=== PATIENT | female | born 1995 | race African-American/Black ===

== ENCOUNTER 2016-12-15 11:26 | Emergency (ER) | payer BC ==
[~2016-12-15] VITALS: Ht 160 cm; Wt 85.0 kg
[~2016-12-15 11:26] MED LIST: CIPR250T52 PO
[2016-12-15 11:28] VITALS: BP 123/79; PULSE 84; RESP 16; TEMP 98.1; O2SAT 95
--- NOTE | 2016-12-15 12:01 | PD ---
HPI Chief Complaint: Complaint Time Seen by Provider: 12:01 Travel History International Travel<30 days: No Contact w/Intl Traveler<30days: No Traveled to known affect area: No History of Present Illness HPI 21-year-old female presents to emergency department for evaluation urinary frequency, urgency, burning. Patient states that she keeps getting UTIs and is concerned that this is due to her not being circumcised. Denies any recent illnesses, fever, chills. Does have some suprapubic pain but no nausea or vomiting. She does report a white vaginal discharge. She does not believe she is . She has no report. [facility] Past Medical History Medical History: Denies Significant Hx Diminished Hearing: No Immunizations Current: Yes ?: Not LMP: 11/28/16 Social History Alcohol Use: No Tobacco Use: No Substance Use: No Allergies-Medications (Allergen,Severity, Reaction): Coded Allergies: No Known Allergies (Unverified , 09/19/16) Reported Meds & Prescriptions Reported Meds & Active Scripts Active Diflucan (Fluconazole) 150 Mg Tab 150 Mg PO ONCE Keflex (Cephalexin) 500 Mg Cap 500 Mg PO Q8H Cipro (Ciprofloxacin HCl) 250 Mg Tab 250 Mg PO BID 3 Days Review of Systems Except as stated in HPI: all other systems reviewed are Neg Physical Exam Narrative GENERAL: Well-nourished female patient, in no acute distress SKIN: Warm and dry. HEAD: Atraumatic. Normocephalic. EYES: Pupils equal and round. No scleral icterus. No injection or drainage. ENT: No nasal bleeding or discharge. Mucous membranes pink and moist. NECK: Trachea midline. No JVD. CARDIOVASCULAR: Regular rate and rhythm. No murmur appreciated. RESPIRATORY: No accessory muscle use. Clear to auscultation. Breath sounds equal bilaterally. GASTROINTESTINAL: Abdomen soft, nondistended. Suprapubic tenderness to palpation. Hepatic and splenic margins not palpable. MUSCULOSKELETAL: No obvious deformities. No clubbing. No cyanosis. No edema. NEUROLOGICAL: Awake and alert. No obvious cranial nerve deficits. Motor grossly within normal limits. Normal speech. PSYCHIATRIC: Appropriate mood and affect; insight and judgment normal. Data Data Last Documented VS Vital Signs Date Time Temp Pulse Resp B/P Pulse Ox O2 Delivery O2 Flow Rate FiO2 12/15/16 11:28 98.1 84 16 123/79 95 Room Air Orders Urinalysis - C+S If Indicated (12/15/16 11:33) Ed Urine Pregnancytest Poc (12/15/16 11:44) Gc And Chlamydia Pcr (12/15/16 12:07) Urine Culture (12/15/16 11:40) Ceftriaxone Inj (Rocephin Inj) (12/15/16 14:00) Azithromycin (Zithromax) (12/15/16 14:00) Lidocaine 1% Inj (Xylocaine 1% Inj) (12/15/16 14:00) Labs Laboratory Tests Test 12/15/16 11:40 Urine Color YELLOW Urine Turbidity HAZY Urine pH 7.5 Urine Specific [place] 1.017 Urine Protein NEG mg/dL Urine Glucose (UA) NEG mg/dL Urine Ketones NEG mg/dL Urine Occult Blood SMALL Urine Nitrite NEG Urine Bilirubin NEG Urine Urobilinogen LESS THAN 2.0 MG/DL Urine Leukocyte Esterase MOD Urine RBC 34 /hpf Urine WBC 55 /hpf Urine Squamous Epithelial 6 /hpf Cells Urine Bacteria MOD /hpf Urine Mucus FEW /lpf Microscopic Urinalysis Comment CULTURE INDICATED MDM Medical Decision Making Medical Screen Exam Complete: Yes Emergency Medical Condition: Yes Medical Record Reviewed: Yes Differential Diagnosis Cystitis versus vaginitis versus urethritis versus pyelonephritis versus STD versus Narrative Course 21-year-old female presents to emergency department for evaluation of urinary symptoms consistent with previous UTI. Workup was initiated in triage. Abrasion does report thick white vaginal discharge. GC PCR sent. Once a medical bed becomes available, patient will be transferred and care assumed by that provider. Scripts Fluconazole (Diflucan)150 Mg [id number] Mg PO ONCE #1 TAB Ref 1 Prov:Malachi Galindo MD 12/15/16 Cephalexin (Keflex)500 Mg [id number] Mg PO Q8H #21 CAP Prov:Malachi Galindo MD 12/15/16 Condition: Kari ResendizBasia RAMON Dec 15, 2016 12:01
[2016-12-15 12:21] LABS: BACTERIA, URINE MOD /hpf; BLOOD, URINE SMALL (NEG); COMMENT (UR) CULTURE INDICATED; CULTURE IF INDICATED CULTURE INDICATED; GLUCOSE,URINE NEG (NEG); KETONE, URINE NEG (NEG); MUCUS URINE FEW /lpf (OCC); NITRITE,URINE NEG (NEG); PH, URINE 7.5 (5.0-8.5); SQUAMOUS EPITHELIAL CELL URINE 6 /hpf (0-5); URINE COLOR YELLOW (YELLW/STRAW)
--- NOTE | 2016-12-15 13:30 | PD ---
Physical Exam Date Seen by Provider: Dec 15, 2016 Time Seen by Provider: 13:29 Narrative Patient seen originally in triage by Basia NAVARRO. Patient complaining of urinary tract infection symptoms and question STD. Patient complains of white vaginal discharge. Patient has history of recurrent UTI. She denies fever chills or other symptoms. Please see Basia Kee's note. Data Data Last Documented VS Vital Signs Date Time Temp Pulse Resp B/P Pulse Ox O2 Delivery O2 Flow Rate FiO2 12/15/16 11:28 98.1 84 16 123/79 95 Room Air Orders Urinalysis - C+S If Indicated (12/15/16 11:33) Ed Urine Pregnancytest Poc (12/15/16 11:44) Gc And Chlamydia Pcr (12/15/16 12:07) Urine Culture (12/15/16 11:40) Ceftriaxone Inj (Rocephin Inj) (12/15/16 14:00) Azithromycin (Zithromax) (12/15/16 14:00) Labs Laboratory Tests Test 12/15/16 11:40 Urine Color YELLOW Urine Turbidity HAZY Urine pH 7.5 Urine Specific [place] 1.017 Urine Protein NEG mg/dL Urine Glucose (UA) NEG mg/dL Urine Ketones NEG mg/dL Urine Occult Blood SMALL Urine Nitrite NEG Urine Bilirubin NEG Urine Urobilinogen LESS THAN 2.0 MG/DL Urine Leukocyte Esterase MOD Urine RBC 34 /hpf Urine WBC 55 /hpf Urine Squamous Epithelial 6 /hpf Cells Urine Bacteria MOD /hpf Urine Mucus FEW /lpf Microscopic Urinalysis Comment CULTURE INDICATED MDM Medical Record Reviewed: Yes Supervised Visit with LENNIE: Yes Differential Diagnosis UTI. Candidal vaginosis. Possible STD. Narrative Course Patient is treated with Rocephin 1000 mg IM. Patient also given azithromycin 1000 mg by mouth. Patient discharged home with a prescription for Keflex 500 mg 3 times a day 7 days. Patient also given Diflucan 150 mg once. May repeat in one week if necessary for vaginal yeast. Patient is [facility] to ensure clearance of her symptoms at approximate 7-10 days. Patient may return to emergency department if worsening symptoms develop. GC and chlamydia are still pending. Diagnosis Primary Impression: UTI (urinary tract infection) Qualified Code: N30.00 - Acute cystitis without hematuria Additional Impression: Candidiasis, vagina Referrals: [facility] 1 week Patient Instructions: Dysuria (ED), General Instructions, Oral Candidiasis (GEN ) Additional Instruction: Patient is treated with Rocephin 1000 mg IM. Patient also given azithromycin 1000 mg by mouth. Patient discharged home with a prescription for Keflex 500 mg 3 times a day 7 days. Patient also given Diflucan 150 mg once. May repeat in one week if necessary for vaginal yeast. Patient is recommended to follow-up with the [facility] to ensure clearance of her symptoms at approximate 7-10 days. Patient may return to emergency department if worsening symptoms develop. GC and chlamydia are still pending. Med/Other Pt SpecificInfo: Prescription(s) given Scripts Fluconazole (Diflucan)150 Mg [id number] Mg PO ONCE #1 TAB Ref 1 Prov:Malachi Galindo MD 12/15/16 Cephalexin (Keflex)500 Mg [id number] Mg PO Q8H #21 CAP Prov:Malachi Galindo MD 12/15/16 Disposition: 01 DISCHARGE HOME Condition: Stable Tor Burris Dec 15, 2016 13:30
[2016-12-15] MEDS ORDERED: DIFL150T PO (13:50)
[2016-12-15] MEDS ORDERED: CEPH-460 PO (13:50)
[2016-12-15] MEDS ORDERED: LIDOCAINE HCL 1% 30 ML VIAL INFIL ONE (14:00)
[2016-12-15] MEDS ORDERED: AZITHROMYCIN 250 MG TAB PO ONE (14:00)
[2016-12-15 16:24] LABS: CHLAMYDIA PCR NOT DETECTED (NOT DETECT); NEISSERIA PCR NOT DETECTED (NOT DETECT)
== END 2016-12-15 14:39 | disposition home or self-care (01) ==
LOC: NEPB 11:26
DX: N30.00 Acute cystitis without hematuria (principal); B37.3 Candidiasis of vulva and vagina; B95.7 Other staphylococcus as the cause of diseases classified elsewhere; Z87.440 Personal history of urinary (tract) infections
CPT/HCPCS: 81001; 84703; 86403; 87077; 87086; 87186; 87491; 87591; 96372; 99283; J0696

== ENCOUNTER 2018-04-04 05:26 | Emergency (ER) | payer SELFPAY ==
[~2018-04-04] VITALS: Ht 162.6 cm; Wt 72.5 kg
[~2018-04-04 05:26] MED LIST changes: +CEPH-460 PO; +DIFL150T PO
[2018-04-04 05:28] VITALS: BP 90/53; PULSE 79; RESP 16; TEMP 97.5; O2SAT 100
[2018-04-04] MEDS ORDERED: ALUMINUM/MAGNESIUM/SIMETH 30 ML CUP PO ONE (06:00)
[2018-04-04] MEDS ORDERED: LIDOCAINE VISCOUS 2% SOLN 15 ML UDC PO ONE (06:00)
[2018-04-04] MEDS ORDERED: ONDANSETRON ODT 4 MG TAB PO ONE (06:00)
--- NOTE | 2018-04-04 07:14 | PD ---
HPI Chief Complaint: Abdominal Pain Time Seen by Provider: 05:39 Travel History International Travel<30 days: No Contact w/Intl Traveler<30days: No Traveled to known affect area: No History of Present Illness HPI Patient has abdominal pain epigastric that started today she thinks it is gallstones she has a history of gallstones were diagnosed in [place] however she says she has has antibiotics to take when this happens but they are [place] and she is up in [facility] for a week. She is mild nausea but no vomiting no diarrhea no fever pain is epigastric it is burning and she has taken no meds to alleviate the symptoms PFSH Past Medical History Diminished Hearing: No Gastrointestinal Disorders: Yes (Gallstones) Immunizations Current: Yes ?: Not LMP: Begining of february Past Surgical History Surgical History: No Previous Surgery Social History Alcohol Use: No Tobacco Use: No Substance Use: No Allergies-Medications (Allergen,Severity, Reaction): Coded Allergies: No Known Allergies (Unverified , 09/19/16) Reported Meds & Prescriptions Reported Meds & Active Scripts Active No Active Prescriptions or Reported Medications Review of Systems Except as stated in HPI: all other systems reviewed are Neg Gastrointestinal: Positive: Nausea, Abdominal Pain Data Data Last Documented VS Vital Signs Date Time Temp Pulse Resp B/P (MAP) Pulse Ox O2 Delivery O2 Flow Rate FiO2 04/04/18 05:28 97.5 79 16 90/53 (65) 100 Orders Orders Urinalysis - C+S If Indicated (04/04/18 05:46) Ed Urine Pregnancytest Poc (04/04/18 05:46) Al-Mag Hy-Si 40-40-4 Mg/Ml Liq (Mag-Al P (04/04/18 06:00) Lidocaine 2% Viscous (Xylocaine 2% Visco (04/04/18 06:00) Ondansetron Odt (Zofran Odt) (04/04/18 06:00) Labs Laboratory Tests Test 04/04/18 06:10 [facility] Medical Decision Making Medical Screen Exam Complete: Yes Emergency Medical Condition: Yes Diagnosis Primary Impression: Epigastric pain Additional Impression: Gastritis Qualified Codes: K29.70 - Gastritis, unspecified, without bleeding Scripts Famotidine (Pepcid) 20 Mg Tab 20 MG PO BID, #20 TAB 0 Refills Prov: Jaret Uriostegui MD 04/04/18 Ondansetron (Zofran) 4 Mg Tab 4 MG PO Q6HR Y for NAUSEA OR VOMITING, #12 TAB 0 Refills Prov: Jaret Uriostegui MD 04/04/18 Disposition: 01 DISCHARGE HOME Condition: Good Jaret Uriostegui MD Apr 04, 2018 07:14
[2018-04-04] MEDS ORDERED: ZOFR4TAB PO (07:15)
[2018-04-04] MEDS ORDERED: FAMO1TAB37 PO (07:15)
[2018-04-04 08:23] LABS: BACTERIA, URINE RARE /hpf; BILIRUBIN, URINE NEG (NEG); BLOOD, URINE NEG (NEG); CALCIUM OXALATE CRYSTALS,URINE MOD /hpf; GLUCOSE,URINE NEG (NEG); KETONE, URINE TRACE mg/dL (NEG); MUCUS URINE MOD /lpf (OCC); NITRITE,URINE NEG (NEG); SQUAMOUS EPITHELIAL CELL URINE 7 /hpf (0-5); URINE LEUKOCYTE ESTERASE NEG (NEG)
[2018-04-04 08:25] LABS: URINE COLOR YELLOW (YELLW/STRAW)
== END 2018-04-04 07:36 | disposition home or self-care (01) ==
LOC: NEPE 05:26
DX: K29.70 Gastritis, unspecified, without bleeding (principal)
CPT/HCPCS: 81001; 84703; 99283